=== PATIENT | male | born 1985 | race Two or more races ===

== ENCOUNTER 2016-04-12 23:35 | Emergency (ER) | payer BC ==
--- NOTE | 2016-04-13 | ERNOTE ---
Medical Problem HPI - Narrative Date of Service: 04/12/16 - General Chief Complaint: General Assessment Time Seen by Provider: 04/12/16 23:51 Source: patient, old records Exam Limitations: no limitations - Immun/Allergies/Home Medications Immunizations: IMMUNIZATION HX Immunizations Up to Date No History of Influenza Vaccine No Hx Pneumococcal Vaccination No Allergies/Adverse Reactions: Allergies No Known Drug Allergies Allergy (Verified 04/12/16 23:43) Home Medications: HOME MEDICATIONS Amox Tr/Potassium Clavulanate [Augmentin 875-125 Tablet] 875 mg PO Q12H [Last Taken Unknown] diphenhydrAMINE HCL [Benadryl] 50 mg PO Q6H PRN 04/12/16 [Last Taken 04/12/16 22 :43] Clindamycin HCl [Cleocin HCl] 300 mg PO QID #40 capsule 04/13/16 [Last Taken Unknown] - History of Present History Narrative: PT STATES HE HAD HEAD COLD FOR 3 WEEKS AND COULDN'T GET RID OF IT SO WENT TO WALK IN CLINIC ON Mar AND WAS STARTED ON AUGMENTIN 875 FOR SINUS INFECTION. HIS HEAD COLD HAS BEEN GETTING BETTER BUT HE NOTICED ON AM OF Mar THAT HE WAS GETTING SWELLING UNDER HIS CHIN, BILATERALLY AND IT HAS PROGRESSED THE DAY WENT ON. HE TOOK SOME BENADRYL AT HOME IN CASE HE WAS HAVING SOME ALLERGIC REACTION. HE SAYS HE HAS HAD AUGMENTIN IN THE PAST , HE THOUGHT WITHOUT PROBLEMS. HE RECALLS HAVING SIMILAR SWELLING ABOUT A YEAR AGO AND HE WAS GIVEN A DIFFERENT MEDICATION AND TOLD TO SUCK ON SOUR CANDIES AND IT WENT AWAY QUICKLY. 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 HE WAS DX'D PAROTITIS, SWITCHED TO CLINDAMYCIN AND TOLD ABOUT THE SOUR CANDIES. HE DENIES ANY OTHER HEALTH PROBLEMS. NO SORE THROAT THOUGH THE SWOLLEN AREAS BELOW HIS JAW ARE TENDER. NO HX. OF ANY FEVERS. Timing: getting worse Severity: moderate Review of Systems - Review of Systems Constitutional: Present: See HPI EYE: Present: no symptoms reported ENT: Present: See HPI, nose congestion, sore throat, other - SWELLING OF GLANDS BELOW HIS JAW BILATERALLY Respiratory: Present: no symptoms reported Cardiology: Present: no symptoms reported Musculoskeletal: Present: no symptoms reported Skin: Present: no symptoms reported Neurological: Present: no symptoms reported All Other Systems: All systems neg except as marked - Patient's Past Medical History Patient History - Medical: No pertinent hx Patient History - Cardiac/Respiratory: No pertinent hx Patient History - Cancer: No Hx of Cancer Patient History - Surgical Procedures: No surgical history Patient History - Other: None - Social History Living Situations: home Abuse History: No History of abuse Psych History: No pertinent hx Smoking Status: Never smoker Do you dip or chew tobacco: No Alcohol Use: occasionally Drug Use: none - Immunizations Immunizations Up to Date: No Hx Pneumococcal Vaccination: No History of Influenza Vaccine: No Physical Exam - Physical Exam General Appearance: Present: wd/wn, alert, mild distress - MILDLY ANXIOUS Eye Exam: Normal inspection: bilateral Ears, Nose, Throat: Present: normal except -, nasal congestion, normal pharynx - THOUGH HE HAS DIFFICULTY FULLY OPENING HIS MOUTH BECAUSE OF THE SWELLING UNDER HIS JAW CAUSING TENDERNESS. . Absent: tonsillar swelling - NO POSTERIOR PHARYNGEAL SWELLING OR EXUDATE. Neck: Present: supple, full range of motion, lymphadenopathy (R), lymphadenopathy (L) - PT WITH BILATERAL SWELLING AND TENDERNESS IN AREA OF SALIVARY GLAND , NOT REALLY IN AREA OF CERVICAL LYMPH NODES THOUGH I SUPPOSE SUPERIOR LYMPH NODES COULD CAUSE SIMILAR SWELLING BUT NOT IN SUCH A BOARD AREA. HE IS SL TENDER OF PAROTID AREA BILATERALLY WELL BUT WITHOUT ANY SWELLING IN THAT AREA. THERE IS NO ERYTHEMA OR INCREASED WARMTH TO TOUCH. I DO NOT NOTE ANY SALIVARY DUCT ERYTHEMA , SWELLING OR PAIN IN HIS MOUTH. Respiratory: Present: no respiratory distress, normal breath sounds, no accessory muscle use, chest nontender, lungs clear Cardiovascular/Chest: Present: regular rate, rhythm, no murmur, normal peripheral pulses Neurological Exam: Present: alert, oriented, normal mood/affect Skin Exam: Present: normal color, warm/dry Lymphatic Exam: Present: other - SEE NECK EXAM COMMENTS. ED Progress - Vital Signs Vital Signs: Vital Signs 04/12/16 23:38 Temperature 36.5 C Pulse Rate 92 Respiratory 18 Rate Blood Pressure 149/101 O2 Sat by Pulse 100 Oximetry - Progress/Reassessment Chief Complaint: General Assessment Departure - Departure Clinical Impression: Salivary gland disorder Disposition: Home self-care Instructions: Salivary Gland Infection, Parotitis, [id number] Additional Instructions: STOP THE AUGMENTIN , BEGIN CLINDAMYCIN DIRECTED, SUCK ON LEMON DROPS TO HELP STIMULATE SALIVARY SECRETIONS. SINCE YOU HAD THIS ONCE BEFORE WHEN TAKING AUGMENTIN I WOULD AVOID AUGMENTIN IN THE FUTURE. RETURN TO THE ER IF WORSE INSTEAD OF IMPROVING. Prescriptions: Clindamycin HCl [Cleocin HCl] 300 mg PO QID #40 capsule
[2016-04-13 00:38] VITALS: BP 139/82
[2016-04-13] MEDS ORDERED: CLINDAMYCIN HCL 150 MG CAPSULE PO ONE (00:38)
[2016-04-13] MEDS ORDERED: CLINDAMYCIN HCL 150 MG CAPSULE ONE (00:39)
--- OUTSIDE RECORDS SUMMARY | 2016-04-13 00:59 | XMS REPORT | Continuity of Care Document ---
:1985 Author Organization [facility] ([facility]) Address [address] [place] [address] Phone [phone] Care Team Providers Name Role Phone Provider, No-Primary Care Primary Care Provider Unavailable Source Comments This disclosure is being made pursuant to the Care Everywhere program, applicable federal and state laws, and may not contain all informaitonavailable regarding this patient.[facility] ([facility]) Active Allergies and Adverse Reactions No Active Allergies Current Medications Not on file Active Problems Problem Noted Date Injury, other and unspecified, finger 02/25/2006 Social History Tobacco Use Types Packs/Day Years Used Date Never Assessed Last Filed Vital Signs Vital Sign Reading Time Taken Blood Pressure 122/78 02/25/2006 4:05 PM ACCESS DEVELOPER Pulse - - Temperature 37.2 C (98.96 F) 02/25/2006 4:05 PM ACCESS DEVELOPER Respiratory Rate - - Height 1.778 m (5' 10") 12/08/2005 3:29 PM ACCESS DEVELOPER Weight 80.559 kg (177 lb 9.6 oz) 12/08/2005 3:29 PM ACCESS DEVELOPER Body Mass Index 25.48 12/08/2005 3:29 PM ACCESS DEVELOPER Oxygen Saturation - - Plan of Care Health Maintenance Due Date Last Done Comments Hepatitis B Vaccine (1 of 3 - Primary Series) 1985 Tdap Vaccine 1998 Lipid Disorder Screening 2005 MMR Vaccine 2005 Td Vaccine 2005 Varicella Vaccine (1 of 2 - Adult - No Evidence of 2005 Immunity) Influenza Vaccine: Seasonal (#1) 09/10/2015 Results from Last 3 Months Not on file
== END 2016-04-13 01:03 | disposition home or self-care (01) ==
LOC: ER 23:35
DX: K11.8 Other diseases of salivary glands (principal)